=== PATIENT | female | born 1965 | race Two or more races ===

== ENCOUNTER 2018-08-26 14:42 | Outpatient (CLI) | payer OTHER | END 2018-08-26 14:54 | disposition home or self-care (01) | LOC: RAD 14:42 | DX: M25.561 Pain in right knee (principal); M25.562 Pain in left knee; R91.8 Other nonspecific abnormal finding of lung field ==

== ENCOUNTER 2018-08-27 07:37 | Outpatient (CLI) | payer OTHER | END 2018-08-27 15:00 | disposition home or self-care (01) | LOC: LAB 07:37 | DX: E11.8 Type 2 diabetes mellitus with unspecified complications (principal); D68.8 Other specified coagulation defects; R94.31 Abnormal electrocardiogram [ECG] [EKG] ==

== ENCOUNTER → 2019-05-19 07:38 | Outpatient (CLI) | payer OTHER | END | disposition home or self-care (01) | LOC: LAB 07:38 | DX: N95.1 Menopausal and female climacteric states (principal); R89.1 Abnormal level of hormones in specimens from other organs, systems and tissues; E03.8 Other specified hypothyroidism; D64.89 Other specified anemias; E55.9 Vitamin D deficiency, unspecified; E78.49 Other hyperlipidemia; M81.6 Localized osteoporosis [Lequesne]; N39.0 Urinary tract infection, site not specified ==

== ENCOUNTER 2020-01-18 13:56 | Outpatient (CLI) | payer OTHER | END 2020-01-18 14:09 | disposition home or self-care (01) | LOC: NUCLEAR 13:56 | PROVIDERS: ATTEND Internal Medicine Rheumatology | DX: M81.0 Age-related osteoporosis without current pathological fracture (principal) ==

== ENCOUNTER 2020-01-25 10:00 | Outpatient (CLI) | payer OTHER | END 2020-01-25 10:13 | disposition home or self-care (01) | LOC: RAD 10:00 | PROVIDERS: ATTEND Internal Medicine Rheumatology | DX: M50.83 Other cervical disc disorders, cervicothoracic region (principal); M51.9 Unspecified thoracic, thoracolumbar and lumbosacral intervertebral disc disorder; M17.0 Bilateral primary osteoarthritis of knee ==

== ENCOUNTER → 2020-01-27 07:37 | Outpatient (CLI) | payer OTHER | END | disposition home or self-care (01) | LOC: LAB 07:37 | PROVIDERS: ATTEND Internal Medicine Rheumatology | DX: M81.0 Age-related osteoporosis without current pathological fracture (principal); E55.9 Vitamin D deficiency, unspecified; M19.90 Unspecified osteoarthritis, unspecified site ==

== ENCOUNTER 2020-06-01 08:48 | Outpatient (CLI) | payer OTHER | END 2020-06-01 08:57 | disposition home or self-care (01) | LOC: LAB 08:48 | PROVIDERS: ATTEND Obstetrics & Gynecology | DX: D64.89 Other specified anemias (principal); N95.1 Menopausal and female climacteric states; R89.1 Abnormal level of hormones in specimens from other organs, systems and tissues; E03.8 Other specified hypothyroidism; E55.9 Vitamin D deficiency, unspecified; E78.49 Other hyperlipidemia; M81.6 Localized osteoporosis [Lequesne] ==

== ENCOUNTER → 2020-06-01 | Outpatient (CLI) | payer OTHER | END | disposition home or self-care (01) | LOC: MAMO-SONO 10:23 | PROVIDERS: ATTEND Obstetrics & Gynecology | DX: N60.11 Diffuse cystic mastopathy of right breast (principal); N60.12 Diffuse cystic mastopathy of left breast; Z12.31 Encounter for screening mammogram for malignant neoplasm of breast ==

== ENCOUNTER → 2024-08-23 | Outpatient (CLI) | payer OTHER | END | disposition home or self-care (01) | LOC: MAMO-SONO 10:52 | PROVIDERS: ATTEND Anesthesiology | DX: R19.00 Intra-abdominal and pelvic swelling, mass and lump, unspecified site (principal); N63.10 Unspecified lump in the right breast, unspecified quadrant; N63.20 Unspecified lump in the left breast, unspecified quadrant ==